=== PATIENT | male | born 1965 | race African-American/Black ===

== ENCOUNTER 2021-02-04 12:34 | Day surgery (SDC) | payer OTHER ==
[~2021-02-04] VITALS: Ht 170 cm; Wt 87.0 kg
[~2021-02-04 12:34] MED LIST: ACETAMINOPHEN500 M1 PO; COZAAR50 MG PO; FLEXERIL10 MG PO; HCTZ25 MG PO; NASAL ALLERGY S13 ML; NORVASC 10MG TA10 MG PO; PERCOCET 5-3251 EACH PO; PRILOSEC20 MG PO
--- NOTE | 2021-02-04 16:27 | NUR ---
PT. HAD A LRTSR THIS DATE. PT. WILL D/C HOME WITH SPOUSE. PT HAS NO NEEDS AT THIS TIME.
[2021-02-05 06:34] LABS: BASOPHIL 0.1 % (0-2); EOSINOPHIL 0 % (0-5); HCT 39.3 % (42.0-52.0); LYMPHOCYTE 10.6 % (15-48); MCH 32.6 pg (25.0-31.0); MCHC 33.1 g/dL (32.0-36.0); MCV 98.5 fL (78.0-100.0); MONOCYTE 7.7 % (0-12); MPV 8.7 fL (6.0-9.5); NEUTROPHIL 81.2 % (41-80); NRBC 0; PLT 256 K/uL (150-400); RBC 3.99 M/uL (4.70-6.00)
[2021-02-05 06:53] LABS: CREATININE 0.95 mg/dL (0.67-1.17); POTASSIUM 4.3 mmol/L (3.5-5.1)
[2021-02-05] MEDS ORDERED: CHILDREN'S ASPI81 MG PO (08:56)
[2021-02-05] MEDS ORDERED: FEOSOL325 MG PO (08:56)
== END 2021-02-05 12:43 | disposition home or self-care (01) ==
LOC: FAS 12:34 → FMS 14:09 → FAS 15:00 → FMS 02-05 12:12 → FAS 02-05 12:43
PROVIDERS: Orthopaedic Surgery
DX: M19.012 Primary osteoarthritis, left shoulder (principal); I10 Essential (primary) hypertension; K21.9 Gastro-esophageal reflux disease without esophagitis
CPT/HCPCS: 36415; 73020; 80048; 85025; 86850; 86900; 86901; 94010; 94760; 97162; 97166; 97530-GP; 97535; C1713; C1776; J0171; J0697; J1100; J1885; J2250; J2270; J2370; J2795; J3010; J7120